=== PATIENT | female | born 1955 | race Two or more races ===

== ENCOUNTER 2018-01-10 16:00 | Outpatient (AMBR) | payer OTHER, SELFPAY ==
--- NOTE | 2017-12-25 16:09 | PT.ODAYNRPT ---
PT Outpatient Daily Note Date of Service: December 25, 2017 OP Daily Note Visit Reasons: low back Outpatient Physical Therapy Treatment Date: 12/25/17 Subjective: Pt mention that her neck feels the same. Pt still has good and bad day. Pt continues to notice tension on the left side of her neck. Objective: Please see flow chart for list of ther ex performed Assessment: tight levator scapulae bilaterally; decrease tightness after stretching Plan: Continue with PT Length of Time (minutes) of Treatment: 30 Minutes Office Procedures PT Procedures PT Date of Service: 12/25/17 Therapeutic Exercise 15 minutes: Yes Manual Laborer Brush Clearing 15 minutes: Yes
--- NOTE | 2018-01-01 17:02 | PTNOTE_ITS ---
PT Outpatient Daily Note Date of Service: January 01, 2018 OP Daily Note Visit Reasons: low back Outpatient Physical Therapy Treatment Date: 01/01/18 Subjective: pt reports feeling better since last visit. Objective: see flow sheet. Assessment: noted pt was not able to keep both arms up against the wall during wall angels exercise even with TCs. performs exercises with no complaints nor muscle fatigue. no signs of SOB after ther ex. pt stays calm during PROM of the neck in supine position and no facial expressions noted. Plan: continue POC per PT. Length of Time (minutes) of Treatment: 30 Minutes Office Procedures PT Procedures PT Date of Service: 12/25/17 Therapeutic Exercise 15 minutes: Yes Manual Manufactured Buildings Supervisor 15 minutes: Yes PT Procedures PT Date of Service: 01/01/18 Therapeutic Exercise 15 minutes: Yes Manual Manufactured Buildings Supervisor 15 minutes: Yes
--- NOTE | 2018-01-03 16:27 | PTNOTE_ITS ---
PT Outpatient Daily Note Date of Service: January 03, 2018 OP Daily Note Visit Reasons: low back Outpatient Physical Therapy Treatment Date: 01/03/18 Subjective: Pt's mid back feels much better. Pt's neck is also more loose with less pain. Objective: Please see flow chart for list of ther ex performed Assessment: tolerate exercises with minimal pain; decrease neck tension Plan: Continue with PT Length of Time (minutes) of Treatment: 30 Minutes Office Procedures PT Procedures PT Date of Service: 12/25/17 Therapeutic Exercise 15 minutes: Yes Manual Bleach Range Operator 15 minutes: Yes PT Procedures PT Date of Service: 01/01/18 Therapeutic Exercise 15 minutes: Yes Manual Bleach Range Operator 15 minutes: Yes PT Procedures PT Date of Service: 01/03/18 Therapeutic Exercise 30 minutes: Yes
--- NOTE | 2018-01-08 17:21 | PTNOTE_ITS ---
PT Outpatient Daily Note Date of Service: January 08, 2018 OP Daily Note Visit Reasons: low back Outpatient Physical Therapy Treatment Date: 01/08/18 Subjective: pt doing well today as she had no complaints. Objective: see flow sheet. Assessment: hotpack in supine position while PROM of the neck to both sides. at times pt tenses up and needs to relax a bit. the R side seems more tight as noted during stretching. pt has no c/o pain or discomfort during PROM. pt then continued on with exercises. pt used the GTB today and had no difficulties with it. maintained good standing posture. Plan: continue POC per PT. Length of Time (minutes) of Treatment: 30 Minutes Office Procedures PT Procedures PT Date of Service: 12/25/17 Therapeutic Exercise 15 minutes: Yes Manual Business Machine Mechanic 15 minutes: Yes PT Procedures PT Date of Service: 01/01/18 Therapeutic Exercise 15 minutes: Yes Manual Business Machine Mechanic 15 minutes: Yes PT Procedures PT Date of Service: 01/03/18 Therapeutic Exercise 30 minutes: Yes PT Procedures PT Date of Service: 01/08/18 Therapeutic Exercise 15 minutes: Yes Manual Business Machine Mechanic 15 minutes: Yes
--- NOTE | 2018-01-10 16:27 | PTNOTE_ITS ---
PT Outpatient Daily Note Date of Service: January 10, 2018 OP Daily Note Visit Reasons: low back Outpatient Physical Therapy Treatment Date: 01/10/18 Subjective: Pt's neck and mid back feels much better. Pt notice that her pain is less. Objective: Please see flow chart for list of ther ex performed Assessment: improvement with t/s facet and mobility. less neck pain after therapy session Plan: Continue with PT Length of Time (minutes) of Treatment: 30 Minutes Office Procedures PT Procedures PT Date of Service: 12/25/17 Therapeutic Exercise 15 minutes: Yes Manual Coke Drawer Hand 15 minutes: Yes PT Procedures PT Date of Service: 01/01/18 Therapeutic Exercise 15 minutes: Yes Manual Coke Drawer Hand 15 minutes: Yes PT Procedures PT Date of Service: 01/10/18 Therapeutic Exercise 30 minutes: Yes PT Procedures PT Date of Service: 01/03/18 Therapeutic Exercise 30 minutes: Yes PT Procedures PT Date of Service: 01/08/18 Therapeutic Exercise 15 minutes: Yes Manual Coke Drawer Hand 15 minutes: Yes
== END 2018-01-13 23:59 ==
PROVIDERS: PCP Physician Assistant; Referring Provider Physician Assistant
DX: M54.5 Low back pain (principal); M54.2 Cervicalgia
CPT/HCPCS: 97110; 97140

== ENCOUNTER 2024-06-28 09:21 | Outpatient (AMB) | payer MEDICARE, SELFPAY ==
--- NOTE | 2024-06-28 09:30 | PD.ORTHCLVIS ---
Vital signs 06/28/24 09:33 Height 1.6 m Height Method Stated Weight 60.328 kg Weight Measurement Method Standing Scale BMI 23.6 BP 161/90 H Blood Pressure Source Automatic Cuff Blood Pressure Location Left Upper Arm Position Sitting Respiration 18 Pulse 73 Pulse Source Monitor Temp 98.0 F Temp Source Oral Pulse Oximetry (%) 96 Oxygen Delivery Method Room Air Med/Allergies Allergies & Medications Allergies No Known Drug Allergies Allergy (Verified 04/26/24 15:28) Subjective Visit Visit for: follow up visit and knee Immunization / Flu Flu Vaccine in the Last 12 Months: Yes Date of most recent flu vaccination: 04/16/24 Flu Vaccine Exclusion Criteria: No Exclusion Criteria History of Present Illness Chief complaint: PT HERE IN OFFICE FOR PREOP RIGHT TKA Date of injury / onset of symptoms: 02/12/24 Patient is a 68-year-old female status post left total knee replacement. She is doing well. She is 12 weeks postop. She is doing well with outpatient home therapy Personal History Red flag PMH: none Pain Pain level (0-10): 8 Pain duration: CONSTANT Pain location: inside (medial), outside (lateral), anterior and posterior Pain quality: sharp Pain timing: increases with activity Associated signs & symptoms: none Ambulatory data Ambulatory device: none Treatments Improvement with previous injections: No Improvement with PT: No Improvement with NSAIDS: no Review of Systems Review of Systems: All systems negative unless otherwise noted in HPI. Exam Exam Patient is in no acute distress and is cooperative with the examination today. Patient has a normal mood and affect. Breathing is nonlabored. In no respiratory distress. Bilateral extremities were evaluated and demonstrates sensation intact to light touch. Palpable pedal pulses are present. No significant edema is present. Left knee incision is clean dry intact. Range of motion 0-100 degrees Right knee demonstrates romn from 0-100. knee is ttp medially. There is significant varus deformity Xrays demonstrate a cemented total knee replacement in good alignment and position. For the right knee, there is significant varus deformity and complete obliteration of the medial joint space. Assessment and Plan Problem List (1) Degenerative arthritis of knee, bilateral: Status: Acute Plan: Patient is a 68-year-old female status post left total knee replacement. She is doing well. She has minimal pain. She is working with outpatient physical therapy. The left knee pain is affecting her quality life and happiness. She has tried multiple injections, and anti-inflammatories. The nature and purpose of the total knee replacement, alternative method(s) of treatment, the material risks involved, and the possibility of complications were fully explained to the patient. The patient does NOT have any of the following contraindications to TKA: - Active infection of the knee joint, OR - Active systemic bacteremia, OR - Active skin infection or open wound at surgical site, OR - Neuropathic arthritis, OR - Severe, rapidly progressive neurological disease, OR - Severe medical condition that makes risks of surgery outweigh the potential benefit The patient was told the most common risks and complications associated with a total knee replacement include, but are not limited to: blood clots in the leg, fatal pulmonary embolism, dislocation of the prosthesis, intraoperative and postoperative fractures of the femur or tibia, infection, failure of the prosthesis or grafting materials, complications from anesthesia, reactions to blood transfusions, postoperative leg length inequality, instability of the knee replacement, nerve damage or injury, vascular injury, delayed wound healing, infection, other injury or even . In addition, there are risks associated with anesthesia given during this operation. Also, the patient was told that after undergoing a total knee replacement there may still be persistent pain or disability. The patient was informed that the success of this operation in part depends upon the mechanical devices which are going to be implanted and that these devices can fail or malfunction, and may need to be repaired or replaced and there are no guarantees as to the longevity of this device or its parts and that it or its parts could fail prematurely. The patient was also notified that during the course of surgery, there may be a need to use bone graft from donors, and that any bone graft used will be carefully screened for communicable diseases, including AIDS, hepatitis, Albin-Creutzfeldt, or other diseases, but despite the screening procedures, there is a small chance that they could contract one of these diseases. Finally, the patient was asked to follow completely and fully with all advice and recommended treatments, and that recovery and ultimate outcome are affected by their compliance with recommended treatment. We discussed the risks, benefits and treatment alternatives, and the patient is interested in proceeding with surgery. We will try to set this up as expeditiously as possible. (2) Status post total left knee replacement: Status: Acute Advanced Care Planning Discussion Advance care planning discussed with:: patient Office Procedures GNS Level of Care Nursing/Assessment Patient Status: Established Patient Nursing Assessment/Reassesment: BP Monitoring, Medication Reconciliation, Update PMH in EMR and Vital Signs Coordination of Care: Complex Care and Chronic Disease 1-5, Consent,records obtained, informed consent, 2-3 Insurance Autorizations needed, Lab and Imaging orders and Results/Orders obtained Special Needs: Language special needs Established Patient Charge Established Patient Point Assignment: 115 Established Patient Point Charge: Level 3 (80-115) Past Medical History Past Medical History Have you ever been diagnosed with any of the following: Neurological Problems Seizures: No Cardiology Problems Congestive Heart Failure: No Respiratory Problems Chronic Obstructive Pulmonary Disease (COPD): No Smoking: No Smoking Cessation Counseling: No Smoking Exposure: No Tobacco Use: No Clubbing: No Stomache/Intestinal Problems Hepatitis: No Genital/Urinary Problems Renal Disease: No Reproductive Problems Previous Pregnancies: Yes Musculoskeletal Problems Arthritis: Yes Endocrine Problems Diabetes Mellitus Type 1: No Diabetes Mellitus Type 2: No Other Problems Hospitalization: No Shingles: No Blood Transfusions: No Anesthesia Reactions: No Chicken Pox: Yes Measles: Yes Cancer: No Surgical History Total Knee Replacement: Yes Hysterectomy: Yes
[2024-06-28 09:33] VITALS: BP 161/90; PULSE 73; RESP 18; TEMP 36.7; O2SAT 96; BMI 23.6
== END 2024-06-28 09:52 | disposition home or self-care (01) ==
LOC: HODSRG 09:21
PROVIDERS: PCP Family Medicine; Referring Provider Family Medicine; Supervising Provider Orthopaedic Surgery Adult Reconstructive Orthopaedic Surgery; Visit Provider Orthopaedic Surgery Adult Reconstructive Orthopaedic Surgery
DX: M17.0 Bilateral primary osteoarthritis of knee (principal); Z96.652 Presence of left artificial knee joint
CPT/HCPCS: 99213; G0463

== ENCOUNTER → 2024-07-11 | Outpatient (CLI) | payer MEDICARE, MEDICAID, SELFPAY ==
--- NOTE | 2024-07-11 15:30 | XR_ITS ---
Examination: CT right lower extremity, without contrast. 2-D sagittal reconstructions. 2-D coronal reconstructions. 3-D reconstructions. Date and time of exam:July 11, 2024 1537 hours INDICATIONS: Right knee pain osteoarthritis 4 years CTDI: vol (mGy):9.81 DLP: (mGycm):751 Technique: Multiple 1.25 mm axial sections of the right lower extremity without intravenous contrast have been obtained. 2-D sagittal and coronal reconstructions have been obtained. 3-D reconstructions have been obtained. Low dose protocols were performed. One or more of the following dose reduction techniques were used; automated exposure control, adjustment of the mA and/or KV according to patient size, use of iterative reconstruction technique. Findings: Significant osteopenia Moderate narrowing right hip joint Greater trochanteric bursitis right hip No right hip fracture Significant narrowing medial joint space right knee Moderate to advanced osteoarthritis lateral joint space right knee No fracture IMPRESSION: Advanced osteoarthritis medial joint space right knee Moderate to advanced osteoarthritis lateral joint space right knee
== END | disposition home or self-care (01) ==
PROVIDERS: PCP Family Medicine; Referring Provider Orthopaedic Surgery Adult Reconstructive Orthopaedic Surgery; Visit Provider Orthopaedic Surgery Adult Reconstructive Orthopaedic Surgery
DX: M17.11 Unilateral primary osteoarthritis, right knee (principal)
CPT/HCPCS: 73700

== ENCOUNTER 2024-07-31 07:20 | Day surgery (SDC) | payer MEDICARE, MEDICAID, SELFPAY ==
--- NOTE | 2024-07-26 11:02 | EKG_ITS ---
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
[2024-07-26 11:21] VITALS: BMI 26.2
[2024-07-26 13:19] LABS: Basophils % (Auto) 1 % (0-2.5); Eosinophils # (Auto) 0.1 Thou/mm3 (0.0-0.5); Eosinophils % (Auto) 2 % (0-10); Immature Granulocytes % (Auto) 0 % (0-0); Immature Granulocytes Auto 0.01 Thou/mm3 (0.00-0.00); Lymphocytes # (Auto) 1.5 Thou/mm3 (1.0-4.8); Lymphocytes % (Auto) 25 % (10-50); Mean Corpuscular HGB Conc 34.2 g/dl (31.0-37.0); Mean Corpuscular Hemoglobin 30.5 pg (25.0-35.0); Mean Corpuscular Volume 89 fL (80-100); Monocytes # (Auto) 0.4 Thou/mm3 (0.0-0.8); Monocytes % (Auto) 7 % (0-12); Neutrophils % (Auto) 66 % (37-80); Nucleated Red Blood Cell % 0 /100 WBC (0); Platelet Count 216 Thou/mm3 (140-440); RDW Standard Deviation 42.3 fL (36.4-46.3); Red Blood Count 4.26 Miln/mm3 (4.00-5.20)
[2024-07-26 13:33] LABS: Alanine Aminotransferase 23 U/L (10-49); Albumin, Serum 4.5 gm/dL (3.4-4.8); Albumin/Globulin Ratio 2.3 (1.2-2.2); Alkaline Phosphatase 65 U/L (46-116); Anion Gap 6 (7-16); Aspartate Amino Transferase < 10 U/L (0-34); BUN/Creatinine Ratio 27 Ratio (12-20); Bilirubin,Total 0.4 mg/dL (0.3-1.2); Blood Urea Nitrogen 19 mg/dL (9-23); Calcium 9.8 mg/dL (8.3-10.6); Calcium (Corrected) 9.8 mg/dL (8.5-10.1); Carbon Dioxide 29.6 mMol/L (20.0-31.0); Chloride 106 mMol/L (98-107); Creatinine (Component) 0.7 mg/dL (0.6-1.3); Estimated Creatinine Clearance 62.7 mL/min (>60); Glucose 138 mg/dL (74-106); Osmolality,Calculated 287 (275-295); Sodium 142 mMol/L (136-145); Total Protein 6.5 gm/dL (5.7-8.2); eGFR > 60 See Note
[2024-07-26 14:09] LABS: INR 0.9 (0.9-1.3); Partial Thromboplastin Time 24.8 Seconds (22.0-36.0); Prothrombin Time 10.4 Seconds (9.0-12.2)
--- NOTE | 2024-07-30 14:51 | SUR.PREOP ---
Pt notified to come in at 0730 tomorrow for surgery.
[2024-07-31] VITALS (11 sets, daily range): BP systolic 116–162; BP diastolic 74–84; PULSE 63–83; RESP 12–21; TEMP 36.3–36.8; O2SAT 95–98; BMI 25.1
[2024-07-31] MEDS: ACETAMINOPHEN 325 MG TABLET 650 MG PO (08:50)
[2024-07-31] MEDS: MELOXICAM 7.5 MG TABLET PO ×2 (08:50→20:11)
[2024-07-31] MEDS: PREGABALIN 75 MG CAPSULE PO (08:50)
[2024-07-31] MEDS: RINGERS LACTATED 1000 ML 1,000 ML 20 ML IV (08:50)
--- NOTE | 2024-07-31 11:45 | ESOP_ITS ---
Date of Procedure 07/31/24 Pre Op Diagnosis right knee osteoarthritis Post Op Diagnosis right knee osteoarthritis Procedure right total knee replacement Findings full thickness cartilage loss and osteophytes Procedure Description Indication: The patient is a 69 year old who has a long history of right knee pain. X-rays show degenerative arthritis involving the knee. Over the past several years the patient has had increasing pain, progressive limitation in function. He has failed conservative measures including activity modification, physical therapy, injections, anti-inflammatories, and assistive devices. After a lengthy discussion of the risks and benefits, the patient presents now for total knee replacement. The nature and purpose of the total knee replacement, alternative method(s) of treatment, the material risks involved, and the possibility of complications were fully explained to the patient. The patient was told the most common risks and complications associated with a total knee replacement include, but are not limited to blood clots in the leg, fatal pulmonary embolism, dislocation of the prosthesis, intraoperative and postoperative fractures of the femur or tibia, infection, failure of the prosthesis or grafting materials, complications from anesthesia, reactions to blood transfusions, postoperative leg length inequality, instability of the knee replacement, nerve damage or injury, vascular injury, delayed wound healing, infections, other injury or even . In addition, there are risks associated with anesthesia given during this operation, temporary or permanent numbness on the skin lateral to the incision can be a complication unique to total knee surgery, and kneeling can be painful after knee replacement surgery. Also, the patient was told that after undergoing a total knee replacement there may still be pain or disability. We discussed with the patient that we will be using a robot-assisted technology. We discussed that there is a possibility of converting to manual instrumentation. The patient was informed that the success of this operation in part depends upon the mechanical devices which are going to be implanted and that these devices can fail or malfunction, and may need to be repaired or replaced and there are no guarantees as to the longevity of this device or its part and that it or its parts could fail prematurely. Finally, the patient was asked to follow completely and fully with all advice and recommended treatments, and that recovery and ultimate outcome are affected by their compliance with recommended treatment. Surgical technique: Patient was marked and consented in the pre-operative area. The patient was brought to the operating room and placed on the operating table in a supine position. Prior to positioning, a timeout procedure was performed between the surgeon, the anesthesiologist, and the nursing staff where the patient and the operative side were identified and confirmed. After adequate general anesthetic was obtained, the right lower extremity was prepped and draped in the usual sterile fashion. A weight based dose of Cefazolin were administered within 1 hour prior to incision. The robot was preregistered and calirated before the incision. The extremity was exsanguinated with an esmarch badge and tourniquet inflated to 250mmHg. A midline incision was made. A median parapatellar arthrotomy was made. The patella was subluxed laterally. A medial release was performed to expose the medial tibia. His femoral and tibial pins were placed through an intra incisional manner for both cases. Every effort was made to ensure that the distalmost aspect of the pin was hung in the second cortex. The arrays were then tightened several times to ensure that it was fixed for the remainder of the case. Both femoral and tibial checkpoints were then placed. We then went through the registration process of the bone. We then assessed the knee deformity and attempted to correct it. We also used the robot to aid in judging laxity in both extension and flexion. Final based on laxity and alignment we changed the preoperative assessment to obtain proper proper implant positioning and to correct deformity. Attention was then placed to the tibia. We made a tibial cut using the robot ensuring that both the MCL and the patella tendon were protected with retractors. We then went to the femur and made the posterior cut followed by the anterior cut and the anterior chamfer. The bone was then removed and we made a distal femur cut and a posterior chamfer cut. We verified all cuts. A trial reduction was performed with a size 2 femoral component and a size 2 keeled tibial component. The patella tracked centrally, and no lateral retinacular release was necessary. The trial implants were removed. The arrays, pins, and checkpoints were all removed. We performed a verification that all pins were removed. The cut bone surfaces were lavaged. A size 2 right femoral component, a size 2 keeled tibial component were impacted into position. The knee was felt to be well balanced in the sagittal and coronal plane. The final 2x10 mm cruciate- substituting articular insert was impacted into the tibial tray. The knee was brought out to full extension, flexed up to 120 degrees. It was stable to varus and valgus stress and appropriately balanced in flexion and extension. The wounds were copiously irrigated following deflation of tourniquet. The medial retinaculum was reapproximated with #1 vicryl and quill. The subcutaneous tissues were closed with 0 and 2-0 interrupted Vicryl. The skin was closed with 3-0 Monofilament V loc suture. A sterile dressing was applied. The patient was transferred to a bed and brought to recovery in stable condition. The patient tolerated the procedure well. There were no intraoperative complications. Sponge and needle counts were correct times 2. As the attending surgeon, I attest I was present and performed the entire operation. Grafts/Implants Size 2 CR Femur Size 2 Tibia 10mm poly CS Anesthesia GETA Implants laly Pathology / specimen None Pathology comment: none Estimated Blood Loss 150 Condition Stable Disposition observation Surgeon Charanjit Hardy MD Surgical Staff Operation Date: 07/31/24 10:30 Case Staff IUSS MASTER ANALYST: Martín Ware RNcontinuous improvement coordinator: Inna Romo
--- NOTE | 2024-07-31 11:45 | XR_ITS ---
Examination: Right knee 2 views Technique one AP lateral right knee 2 views Exam date and time: July 31, 2024 1309 hours INDICATIONS: Postop knee replacement FINDINGS: Total right knee arthroplasty. Satisfactory alignment Severe osteopenia No fracture IMPRESSION: Total right knee arthroplasty with satisfactory alignment
--- NOTE | 2024-07-31 12:29 | SUR.PHASEI ---
pt received from OR in recovery bay 7. pt asleep but responds to voice, breathing unlabored on 4l nc. v/s stable. pt dressing to right lower extremity cdi. report received from Michael CRUM and Raysa RAUSCH.
[2024-07-31] MEDS: fentaNYL CIT INJ 50 mCg/ML AMP 2ML IVP (13:11)
--- NOTE | 2024-07-31 13:55 | SUR.PHASEI ---
pt asleep but responds to voice, breathing unlabored on 2l nc. v/s stable. pt dressing to right lower extremity cdi. report called to Samantha RAUSCH. pt will be transferred to room at this time.
[2024-07-31] MEDS: oxyCODONE HCL 5 MG IR TAB 10 MG PO (19:19)
[2024-07-31] MEDS: ASPIRIN EC 81 MG TABEC PO (20:11)
[2024-07-31] MEDS: ACETAMINOPHEN 500 MG TABLET 1000 MG PO (23:43)
[2024-08-01] VITALS: BP 119/73; PULSE 77; RESP 18; TEMP 36.4; O2SAT 97
[2024-08-01 04:00] VITALS: BP 97/55; PULSE 67; RESP 18; TEMP 36.6; O2SAT 97
[2024-08-01] MEDS: oxyCODONE HCL 5 MG IR TAB 10 MG PO ×2 (04:41→11:07)
[2024-08-01 08:00] VITALS: BP 89/51; PULSE 64; RESP 18; TEMP 36.6; O2SAT 95
[2024-08-01] MEDS: ACETAMINOPHEN 500 MG TABLET 1000 MG PO (08:03)
[2024-08-01] MEDS: PANTOPRAZOLE INJ 40 MG VIAL IV (08:03)
[2024-08-01] MEDS: ASPIRIN EC 81 MG TABEC PO (08:04)
--- NOTE | 2024-08-01 10:03 | PC.SS ---
Rosa Pedro is a 69-year-old female admitted to Med-Surg for RT Knee [id number]. SS conducted bedside contact with the patient to complete initial assessment and to discuss discharge planning. Patient confirmed demographic information. Patient identifies her Damon Pedro [phone] as her surrogate decision maker. Patient resides at home with her . Pt states she is able to complete all ADL?s independently possesses a FWW. Pts PCP is Dr. Stanley Peters and her pharmacy of choice is [facility]. The pt?s plan is to DC with Home Health as stated by Dr. Hardy, Ortho [facility]. Pts will provide transportation upon DC. No further intervention required at this time, social media campaign manager would be available to address any further concerns. DC Plan: Home w/ HH Contact: Damon Pedro [phone] PCP: Gil Peters
[2024-08-01 11:43] VITALS: BP 92/50; PULSE 64; RESP 18; TEMP 36.6; O2SAT 95
== END 2024-08-01 12:35 | disposition home or self-care (01) ==
LOC: S2EX 11:45 → S3NX 13:59
PROVIDERS: Anesthesiology; PCP Family Medicine; Referring Provider Orthopaedic Surgery Adult Reconstructive Orthopaedic Surgery; Visit Provider Orthopaedic Surgery Adult Reconstructive Orthopaedic Surgery
PROC: (CPT 27447; principal; 2024-07-31 10:30)
DX: M17.11 Unilateral primary osteoarthritis, right knee (principal); Z01.810 Encounter for preprocedural cardiovascular examination
CPT/HCPCS: 27447; 20985; 36415; 73560; 80053; 85025; 85610; 85730; 87081; 93005; 97162; A4217; C1713; C1776; J0690; J1100; J1885; J2250; J2371; J2405; J2470; J2704; J2795; J3010; J3490; J7030; J7120; J7999; A4648; A4649; A9270

== ENCOUNTER 2024-08-13 10:47 | Outpatient (AMB) | payer MEDICARE, MEDICAID, SELFPAY ==
--- NOTE | 2024-08-13 11:14 | ORTHONT_ITS ---
Vital signs 08/13/24 11:15 Height 1.55 m Height Method Stated Weight 61.774 kg Weight Measurement Method Standing Scale BMI 25.7 BP 145/89 H Blood Pressure Source Automatic Cuff Blood Pressure Location Left Upper Arm Position Sitting Respiration 19 Pulse 74 Pulse Source Monitor Temp 97.4 F Temp Source Temporal Artery Scan Pulse Oximetry (%) 94 L Oxygen Delivery Method Room Air Med/Allergies Allergies & Medications Allergies No Known Drug Allergies Allergy (Verified 08/13/24 11:16) Medication Reconciliation acetaminophen 500 mg tablet (Acetaminophen Extra Strength) 1,000 mg (2 x 500 mg) PO Q6H PRN pain #90 tabs 07/30/24 [Rx Confirmed 08/13/24] aspirin 81 mg tablet,delayed release 81 mg PO BID #60 tabs 07/30/24 [Rx Confirmed 08/13/24] doxycycline hyclate 100 mg tablet 100 mg PO BID #14 tabs 07/30/24 [Rx Confirmed 08/13/24] oxycodone 5 mg tablet 5 mg PO Q6H PRN pain #28 tabs 07/30/24 [Rx Confirmed 08/13/24] sennosides 8.6 mg-docusate sodium 50 mg tablet (Senna-S) 1 tab-cap PO QDAY #30 tabs 07/30/24 [Rx Confirmed 08/13/24] pantoprazole 40 mg tablet,delayed release 40 mg PO QDAY #30 tabs 08/01/24 [Rx Confirmed 08/13/24] pregabalin 75 mg capsule 75 mg PO BID #45 caps 08/01/24 [Rx Confirmed 08/13/24] Exam Exam Patient is in no acute distress and is cooperative with the examination today. Patient has a normal mood and affect. Breathing is nonlabored. In no respiratory distress. Bilateral extremities were evaluated and demonstrates sensation intact to light touch. Palpable pedal pulses are present. No significant edema is present. Left knee incision is clean dry intact. Range of motion 0-100 degrees Right knee demonstrates romn from 0-100. Incision is clean dry and intact Xrays demonstrate a cemented total knee replacement in good alignment and position. For the right knee, there is significant varus deformity and complete obliteration of the medial joint space. Assessment and Plan Problem List (1) Degenerative arthritis of knee, bilateral: Status: Acute Plan: Patient is a 68-year-old female status post Right total knee replacement. She is doing well. She has minimal pain. We Will refill her Tylenol (2) Status post total left knee replacement: Status: Acute Advanced Care Planning Discussion Advance care planning discussed with:: patient Office Procedures GNS Level of Care Nursing/Assessment Patient Status: Established Patient Nursing Assessment/Reassesment: Medication Reconciliation, Update PMH in EMR and Vital Signs Coordination of Care: Complex Care and Chronic Disease 1-5, Education Complex Pt/Fam, Consent,records obtained, informed consent, Results/Orders obtained and Staff clarify orders Special Needs: Language special needs Established Patient Charge Established Patient Point Assignment: 95 Established Patient Point Charge: EP Level 3 (80-115) MA Intake Visit Data Collection New Patient or Established: Established Patient (seen at [facility] within 3 years) Reason for Visit:: 2 week right tka f/u Seen by Clinical Staff ONLY (RN/MA): No Machine Brusher Required: Yes PCP or OBGYN visit in last 3 months: Yes Hx Now: No Do You Feel Safe at Home: Yes Authorities Contacted: N/A Questionairres Past Medical History Past Medical History Have you ever been diagnosed with any of the following: Neurological Problems Seizures: No Cardiology Problems Congestive Heart Failure: No Respiratory Problems Chronic Obstructive Pulmonary Disease (COPD): No Smoking: No Smoking Cessation Counseling: No Smoking Exposure: No Tobacco Use: No Clubbing: No Stomache/Intestinal Problems Hepatitis: No Genital/Urinary Problems Renal Disease: No Reproductive Problems Previous Pregnancies: Yes Musculoskeletal Problems Arthritis: Yes Endocrine Problems Diabetes Mellitus Type 1: No Diabetes Mellitus Type 2: No Other Problems Hospitalization: No Shingles: No Blood Transfusions: No Blood Transfusion Reaction: No Anesthesia Reactions: No Chicken Pox: Yes Measles: Yes Cancer: No Surgical History Total Knee Replacement: Yes Hysterectomy: Yes Subjective Visit Visit for: follow up visit and knee Immunization / Flu Flu Vaccine in the Last 12 Months: No Flu Vaccine Exclusion Criteria: No Exclusion Criteria History of Present Illness Chief complaint: right tka Patient is doing well status post right total knee replacement. Patient has minimal pain. Pain Pain level (0-10): 0 Ambulatory data Ambulatory device: walker Treatments Improvement with previous injections: No Improvement with PT: No Improvement with NSAIDS: no Review of Systems Review of Systems: All systems negative unless otherwise noted in HPI.
[2024-08-13 11:15] VITALS: BP 145/89; PULSE 74; RESP 19; TEMP 36.3; O2SAT 94; BMI 25.7
== END 2024-08-13 11:20 | disposition home or self-care (01) ==
LOC: HODSRG 10:47
PROVIDERS: PCP Family Medicine; Referring Provider Family Medicine; Supervising Provider Orthopaedic Surgery Adult Reconstructive Orthopaedic Surgery; Visit Provider Orthopaedic Surgery Adult Reconstructive Orthopaedic Surgery
DX: M17.0 Bilateral primary osteoarthritis of knee (principal); Z96.651 Presence of right artificial knee joint
CPT/HCPCS: 99213; G0463

== ENCOUNTER → 2024-09-05 | Outpatient (CLI) | payer MEDICARE, MEDICAID, SELFPAY ==
--- NOTE | 2024-09-05 08:32 | XR_ITS ---
Examination: Bilateral knees 2 views Right lateral knee left lateral knee 2 views Bilateral axial knees single view TECHNIQUE: Bilateral AP knees standing single view, bilateral PA knees standing single view 30 degrees flexion Right lateral knee left lateral knee 2 views Bilateral axial knees single view total 5 views Exam date and time: September 05, 2024 0842 hours INDICATIONS: Bilateral total knee arthroplasties, right knee July 31, 2024 left knee February 12, 2024 FINDINGS: Moderate osteopenia Bilateral total knee arthroplasties. Satisfactory alignment. No loosening of the prosthetic components. No fractures. No patellar dislocations IMPRESSION: Bilateral total knee arthroplasties with satisfactory alignment
== END | disposition home or self-care (01) ==
LOC: CDIM 08:22
PROVIDERS: PCP Family Medicine; Referring Provider Orthopaedic Surgery Adult Reconstructive Orthopaedic Surgery; Visit Provider Orthopaedic Surgery Adult Reconstructive Orthopaedic Surgery
DX: M17.11 Unilateral primary osteoarthritis, right knee (principal); Z96.653 Presence of artificial knee joint, bilateral
CPT/HCPCS: 73564

== ENCOUNTER 2024-09-10 13:43 | Outpatient (AMB) | payer MEDICARE, MEDICAID, SELFPAY ==
[2024-09-10 14:03] VITALS: BP 146/98; PULSE 67; RESP 18; TEMP 36.5; O2SAT 95; BMI 25.3
--- NOTE | 2024-09-10 14:03 | PD.ORTHCLVIS ---
Vital signs 09/10/24 14:03 Height 1.55 m Height Method Stated Weight 60.923 kg Weight Measurement Method Standing Scale BMI 25.3 BP 146/98 H Blood Pressure Source Automatic Cuff Blood Pressure Location Right Upper Arm Position Sitting Respiration 18 Pulse 67 Pulse Source Monitor Temp 97.7 F Temp Source Temporal Artery Scan Pulse Oximetry (%) 95 Oxygen Delivery Method Room Air Med/Allergies Allergies & Medications Allergies No Known Drug Allergies Allergy (Verified 09/10/24 14:10) Medication Reconciliation aspirin 81 mg tablet,delayed release 81 mg PO BID #60 tabs 07/30/24 [Rx Confirmed 09/10/24] doxycycline hyclate 100 mg tablet 100 mg PO BID #14 tabs 07/30/24 [Rx Confirmed 09/10/24] sennosides 8.6 mg-docusate sodium 50 mg tablet (Senna-S) 1 tab-cap PO QDAY #30 tabs 07/30/24 [Rx Confirmed 09/10/24] pantoprazole 40 mg tablet,delayed release 40 mg PO QDAY #30 tabs 08/01/24 [Rx Confirmed 09/10/24] pregabalin 75 mg capsule 75 mg PO BID #45 caps 08/01/24 [Rx Confirmed 09/10/24] pregabalin 75 mg capsule 75 mg PO BID #60 caps 08/27/24 [Rx Confirmed 09/10/24] acetaminophen 500 mg tablet (Acetaminophen Extra Strength) 1,000 mg (2 x 500 mg) PO Q8HR PRN pain #90 tabs 09/10/24 [Rx] oxycodone 5 mg tablet 5 mg PO Q6H PRN pain #28 tabs 09/10/24 [Rx] Exam Exam Patient is in no acute distress and is cooperative with the examination today. Patient has a normal mood and affect. Breathing is nonlabored. In no respiratory distress. Bilateral extremities were evaluated and demonstrates sensation intact to light touch. Palpable pedal pulses are present. No significant edema is present. Left knee incision is clean dry intact. Range of motion 0-100 degrees Right knee demonstrates romn from 0-100. Incision is clean dry and intact Xrays demonstrate a cemented total knee replacement in good alignment and position. Right knee also demonstrates a cementless total knee replacement good alignment position Assessment and Plan Problem List (1) Degenerative arthritis of knee, bilateral: Status: Acute Plan: Patient is doing well status post right total knee replacement. She is happy with her progress. Will see her in approximately 2 months for routine evaluation. Her motion is great and she should continue to work with physical therapy (2) Status post total left knee replacement: Status: Acute Advanced Care Planning Discussion Advance care planning discussed with:: patient Office Procedures GNS Level of Care Nursing/Assessment Patient Status: Established Patient Nursing Assessment/Reassesment: Medication Reconciliation, Update PMH in EMR and Vital Signs Coordination of Care: Complex Care and Chronic Disease 1-5, Education Complex Pt/Fam, Consent,records obtained, informed consent, Results/Orders obtained and Staff clarify orders Special Needs: Language special needs Established Patient Charge Established Patient Point Assignment: 95 Established Patient Point Charge: EP Level 3 (80-115) MA Intake Visit Data Collection New Patient or Established: Established Patient (seen at [facility] within 3 years) Reason for Visit:: F/U RT TKA Seen by Clinical Staff ONLY (RN/MA): No Verbal consent obtained for Telemed visit?: No Flower Arranger Required: Yes PCP or OBGYN visit in last 3 months: Yes Hx Now: No Do You Feel Safe at Home: Yes Authorities Contacted: N/A Questionairres Past Medical History Past Medical History Have you ever been diagnosed with any of the following: Neurological Problems Seizures: No Cardiology Problems Congestive Heart Failure: No Respiratory Problems Chronic Obstructive Pulmonary Disease (COPD): No Smoking: No Smoking Cessation Counseling: No Smoking Exposure: No Tobacco Use: No Clubbing: No Stomache/Intestinal Problems Hepatitis: No Genital/Urinary Problems Renal Disease: No Reproductive Problems Previous Pregnancies: Yes Musculoskeletal Problems Arthritis: Yes Endocrine Problems Diabetes Mellitus Type 1: No Diabetes Mellitus Type 2: No Other Problems Hospitalization: No Shingles: No Blood Transfusions: No Blood Transfusion Reaction: No Anesthesia Reactions: No Chicken Pox: Yes Measles: Yes Cancer: No Surgical History Total Knee Replacement: Yes Hysterectomy: Yes Subjective Visit Visit for: post op #2 and knee Immunization / Flu Flu Vaccine in the Last 12 Months: Yes Flu Vaccine Exclusion Criteria: No Exclusion Criteria History of Present Illness Chief complaint: POST OP RT TKA Patient is doing well status post right total knee replacement. She has minimal pain. Personal History Occupation: UNEMPLOYED Red flag PMH: none Pain Pain level (0-10): 5 Pain duration: COMES AND GOES Pain location: inside (medial), outside (lateral) and anterior Pain quality: dull and aching Ambulatory data Ambulatory device: none Treatments Improvement with previous injections: No Improvement with PT: No Improvement with NSAIDS: no Review of Systems Review of Systems: All systems negative unless otherwise noted in HPI.
== END 2024-09-10 14:17 | disposition home or self-care (01) ==
LOC: HODSRG 13:43
PROVIDERS: PCP Family Medicine; Referring Provider Family Medicine; Supervising Provider Orthopaedic Surgery Adult Reconstructive Orthopaedic Surgery; Visit Provider Orthopaedic Surgery Adult Reconstructive Orthopaedic Surgery
DX: M17.0 Bilateral primary osteoarthritis of knee (principal); Z96.653 Presence of artificial knee joint, bilateral
CPT/HCPCS: 99213; G0463

== ENCOUNTER 2024-09-13 14:00 | Outpatient (RCR) | payer MEDICARE, SELFPAY ==
--- NOTE | 2024-09-05 14:48 | PTNOTE_ITS ---
PT OP Initial Eval Patient Information Outpatient Physical Therapy Treatment Date: 09/05/24 Visit Reasons: RT Tka Medical Diagnosis: Right Knee OA Treatment Dx #1: Right Knee Mobility Deficits Treatment Dx #2: Right Knee Weakness Start of Care: 09/05/24 Date of Onset: 07/31/24 Smoking Status Smoking Status: Never smoker Initial Assessment Subjective: Pt is a 69 y/o female s/p right TKA 07/31/24 due to knee OA. Pt mentioned her left knee has been replaced too. Pt has limitation with walking, standing, chores, self care, balance, squatting, and performing recreational activities. Objective: Right Knee AROM: -8 deg to 106 deg Right Knee PROM: -6 deg to 120 deg Right Knee MMTs: grossly 3+/5 Right Hip MMTs: grossly 3+/5 Assessment: Pt demonstrate right knee mobility and strength deficits s/p knee replacement leading to difficulty with ADLs. Pt will benefit from physical therapy to increase ROM, strength, and work on mobility. Short Term and Skilled Nursing Goals 1) Increase right knee flexion AROM to 120 deg in 8 wks to be able to perform squatting activities 2) Decrease knee pain to 2/10 in 8 wks to be able to stand more than 30 mins 3) Increase right knee MMTs grossly to 4/5 in 8 wks to be able to perform chores 4) Increase right hip MMTs grossly to 4-/5 in 8 wks to be able to walk more than 30 mins 5) Indep with HEP Treatment Plan 1) Manual Therapy 2) Therapeutic Activities 3) Therapeutic Exercises 4) Modalities (ice, heat) 5) Balance Training 6) Gait Training Frequency and Duration: 2 x wk for 8 wks Certification Dates: 09/05/24 to 12/03/24 Procedure Charges OP PT Eval Mod Complex 30 minutes: Yes
--- NOTE | 2024-09-09 14:24 | PT.ODAYNRPT ---
PT Outpatient Daily Note OP Daily Note Outpatient Physical Therapy Treatment Date: 09/09/24 Visit Reasons: RT Tka Subjective: No new complaints or concerns. Objective: Please see flow sheet for ther ex list. Assessment: Pt tolerated intervention with no complaints. Plan: Assess response to treatment. Length of Time (minutes) of Treatment: 30 Minutes Procedure Charges Therapeutic Exercise 30 minutes: Yes
--- NOTE | 2024-09-13 14:55 | PT.ODAYNRPT ---
PT Outpatient Daily Note OP Daily Note Outpatient Physical Therapy Treatment Date: 09/13/24 Visit Reasons: RT Tka Subjective: Pt's knee is better. Pt notice some swelling around the knee after doing step up exercise at home. Pt mentioned her step is around 8-10 . Objective: Please see flow chart for list of ther ex performed Assessment: progressing with knee flexion AROM. Pt instructed to hold on step up exercises at home due to height and knee is not stable enough to perform the exercise at mentioned height (8-10 ). Pt gave verbal understanding Plan: Continue with PT Length of Time (minutes) of Treatment: 30 Minutes Procedure Charges Therapeutic Exercise 30 minutes: Yes
== END 2024-09-13 23:59 | disposition home or self-care (01) ==
LOC: CPTX 14:00
PROVIDERS: PCP Orthopaedic Surgery Adult Reconstructive Orthopaedic Surgery; Referring Provider Orthopaedic Surgery Adult Reconstructive Orthopaedic Surgery; Visit Provider Orthopaedic Surgery Adult Reconstructive Orthopaedic Surgery
DX: R53.1 Weakness (principal); Z96.651 Presence of right artificial knee joint; R26.2 Difficulty in walking, not elsewhere classified; R26.89 Other abnormalities of gait and mobility; M17.11 Unilateral primary osteoarthritis, right knee
CPT/HCPCS: 97110; 97162

== ENCOUNTER 2024-10-09 15:30 | Outpatient (RCR) | payer MEDICARE, MEDICAID, SELFPAY ==
--- NOTE | 2024-09-16 16:08 | PT.ODAYNRPT ---
PT Outpatient Daily Note OP Daily Note Outpatient Physical Therapy Treatment Date: 09/16/24 Visit Reasons: RT TKA Subjective: Pt's knee feels better. Pt has some pressure with squatting, however, knee is moving well Objective: Right knee flexion AROM: 115 deg Assessment: progressing with knee flexion AROM with minimal pain reported Plan: Continue with PT Length of Time (minutes) of Treatment: 30 Minutes Procedure Charges Therapeutic Exercise 30 minutes: Yes
--- NOTE | 2024-09-19 15:35 | PT.ODAYNRPT ---
PT Outpatient Daily Note OP Daily Note Outpatient Physical Therapy Treatment Date: 09/19/24 Visit Reasons: RT TKA Subjective: Pt's knee is better. Pt does not have any concerns. Objective: Please see flow chart for list of ther ex performed Assessment: added more hip exercises with good tolerance; cues to pace with exercises today to decrease fatigue Plan: Continue with PT Length of Time (minutes) of Treatment: 30 Minutes Procedure Charges Therapeutic Exercise 30 minutes: Yes
--- NOTE | 2024-09-25 15:10 | PTNOTE_ITS ---
PT Outpatient Daily Note OP Daily Note Outpatient Physical Therapy Treatment Date: 09/25/24 Visit Reasons: RT TKA Subjective: Pt reports R knee progressing continues to perform HEP. Objective: Please see flow sheet for ther ex list. Assessment: Pt ROM into flexion continues to improve. Plan: Continue with POC. Length of Time (minutes) of Treatment: 30 Minutes QUALITY CONTROL TESTER Service Modifier Method I: Divide the number of min of care provided by the QUALITY CONTROL TESTER/FLOWER POT PRESS OPERATOR by the total min of care provided then multiply by 100. If greater than 11 percent modifier is required. Method II: Divide the total time of care provided to patient by 10 (round to the nearest whole number) and add 1 min. to set the minimum time requirement. If treatment total was 60 min., then 10% of 6 min PT CQ modifier applied: CQ Modifier applied Procedure Charges Therapeutic Exercise 30 minutes: Yes
--- NOTE | 2024-09-27 16:07 | PTNOTE_ITS ---
PT Outpatient Daily Note OP Daily Note Outpatient Physical Therapy Treatment Date: 09/27/24 Visit Reasons: RT TKA Subjective: Pt reports R knee was really sore after last session. Objective: Please see flow sheet for ther ex list. Assessment: Regressed interventions to accommodate reported soreness, pt verbalized she would appy cold pack at home. Plan: Assess response to treatment. Length of Time (minutes) of Treatment: 30 Minutes TRUCK DRIVER SALESPERSON Service Modifier Method I: Divide the number of min of care provided by the TRUCK DRIVER SALESPERSON/LAILA by the total min of care provided then multiply by 100. If greater than 11 percent modifier is required. Method II: Divide the total time of care provided to patient by 10 (round to the nearest whole number) and add 1 min. to set the minimum time requirement. If treatment total was 60 min., then 10% of 6 min PT CQ modifier applied: CQ Modifier applied Procedure Charges Therapeutic Exercise 30 minutes: Yes
--- NOTE | 2024-10-01 16:12 | PTNOTE_ITS ---
PT Outpatient Daily Note OP Daily Note Outpatient Physical Therapy Treatment Date: 10/01/24 Visit Reasons: RT TKA Subjective: Pt reports knee is feeling better today. Pt shared that she walks about 30 minutes a day when the weather is nice out and continues to do HEP. Objective: Please see flow sheet for ther ex list. Assessment: Pt presents in clinic with decrease c/o pain and soreness allowing for intervention progression. Plan: Continue with poC. Length of Time (minutes) of Treatment: 30 Minutes ABRASIVE GRINDER Service Modifier Method I: Divide the number of min of care provided by the ABRASIVE GRINDER/LAILA by the total min of care provided then multiply by 100. If greater than 11 percent modifier is required. Method II: Divide the total time of care provided to patient by 10 (round to the nearest whole number) and add 1 min. to set the minimum time requirement. If treatment total was 60 min., then 10% of 6 min PT CQ modifier applied: CQ Modifier applied Procedure Charges Therapeutic Exercise 30 minutes: Yes
--- NOTE | 2024-10-04 15:53 | PT.ODAYNRPT ---
PT Outpatient Daily Note OP Daily Note Outpatient Physical Therapy Treatment Date: 10/04/24 Visit Reasons: RT TKA Subjective: Pt's knee is better. Pt notice less pain and able to bend her knee more lately. Objective: Right Knee Flexion AROM: 120 deg Assessment: Pt demonstrate functional knee flexion AROM and able to achieve 120 deg without stretching Plan: Continue with PT Length of Time (minutes) of Treatment: 30 Minutes Procedure Charges Therapeutic Exercise 30 minutes: Yes
--- NOTE | 2024-10-07 16:27 | PT.ODAYNRPT ---
PT Outpatient Daily Note OP Daily Note Outpatient Physical Therapy Treatment Date: 10/07/24 Visit Reasons: RT TKA Subjective: Pt reports knee is doing well, content she was able to reach her goal for knee flexion 120 deg. last PT session. Objective: Please see flow sheet for ther ex list. Assessment: Pt ROM continues to improve, pt has 3 visits left. Plan: Continue with POC. Length of Time (minutes) of Treatment: 30 Minutes Procedure Charges Therapeutic Exercise 30 minutes: Yes
--- NOTE | 2024-10-09 16:14 | PT.ODAYNRPT ---
PT Outpatient Daily Note OP Daily Note Outpatient Physical Therapy Treatment Date: 10/09/24 Visit Reasons: RT TKA Subjective: Pt reports R knee is doing better, has been more active. Objective: Please see flow sheet for ther ex list. Assessment: Pt instructed on lunges and pt demonstrates good technique. Plan: Continue with POC. Length of Time (minutes) of Treatment: 30 Minutes Procedure Charges Therapeutic Exercise 30 minutes: Yes
== END 2024-10-14 23:59 | disposition home or self-care (01) ==
LOC: CPTX 15:30
PROVIDERS: PCP Orthopaedic Surgery Adult Reconstructive Orthopaedic Surgery; Referring Provider Orthopaedic Surgery Adult Reconstructive Orthopaedic Surgery; Visit Provider Orthopaedic Surgery Adult Reconstructive Orthopaedic Surgery
DX: R53.1 Weakness (principal); R26.2 Difficulty in walking, not elsewhere classified; R26.89 Other abnormalities of gait and mobility; Z96.651 Presence of right artificial knee joint; M17.11 Unilateral primary osteoarthritis, right knee
CPT/HCPCS: 97110

== ENCOUNTER 2024-10-17 15:00 | Outpatient (RCR) | payer MEDICARE, MEDICAID, SELFPAY ==
--- NOTE | 2024-10-15 15:45 | PTNOTE_ITS ---
PT Outpatient Daily Note OP Daily Note Outpatient Physical Therapy Treatment Date: 10/15/24 Visit Reasons: Right TKA Subjective: Pt reports R knee is doing better, is performing her HEP. Objective: Please see flow sheet for ther ex list. Assessment: pt able to replicate HEP with good technique, pt ready to d/c next session. Plan: Assess for note. Length of Time (minutes) of Treatment: 30 Minutes SAP BASIS ARCHITECT Service Modifier Method I: Divide the number of min of care provided by the SAP BASIS ARCHITECT/LAILA by the total min of care provided then multiply by 100. If greater than 11 percent modifier is required. Method II: Divide the total time of care provided to patient by 10 (round to the nearest whole number) and add 1 min. to set the minimum time requirement. If treatment total was 60 min., then 10% of 6 min PT CQ modifier applied: CQ Modifier applied Procedure Charges Therapeutic Exercise 30 minutes: Yes
--- NOTE | 2024-10-17 15:47 | PT.ODS1RPT ---
PT OP Progress/Discharge Note Date of Service: 10/17/24 Progress Note/DC Note Progress Note/Discharge Note: DC Note Patient Information Visit Reasons: Right TKA Medical Diagnosis: Right Knee OA Treatment Dx #1: Right Knee Mobility Deficits Treatment Dx #2: Right Knee Weakness Service Continue Service or Discharge: Discharge Discharge Date: 10/17/24 Status Subjective: Pt's knee is much better. Pt has been able to stand, walk, perform chores, self care, and recreational activities. Pt feels comfortable being release from care with exercises to continue at home. Objective: Right Knee AROM: -8 deg to 120 deg Right Knee MMTs: grossly 4/5 Right Hip MMTs: grossly 4-/5 Assessment: Pt demonstrate functional right knee mobility and strength. Pt has been able to resume all ADLs. Pt has met set goals in therapy and will no longer benefit from physical therapy. Pt was instructed on HEP last session and educated to continue exercises to maintain overall mobility. Pt performed all exercises safely, thank you for your referrals. Plan: D/C home with HEP and follow up with MD SNYDER Procedure Charges Therapeutic Exercise 30 minutes: Yes
== END 2024-11-13 23:59 | disposition home or self-care (01) ==
LOC: CPTX 15:00
PROVIDERS: PCP Orthopaedic Surgery Adult Reconstructive Orthopaedic Surgery; Referring Provider Orthopaedic Surgery Adult Reconstructive Orthopaedic Surgery; Visit Provider Orthopaedic Surgery Adult Reconstructive Orthopaedic Surgery
DX: R53.1 Weakness (principal); R26.2 Difficulty in walking, not elsewhere classified; R26.89 Other abnormalities of gait and mobility; Z96.651 Presence of right artificial knee joint; M17.11 Unilateral primary osteoarthritis, right knee
CPT/HCPCS: 97110

== ENCOUNTER 2024-11-05 13:42 | Outpatient (AMB) | payer MEDICARE, MEDICAID, SELFPAY ==
--- NOTE | 2024-11-05 13:59 | PD.ORTHCLVIS ---
Vital signs 11/05/24 14:00 Height 1.55 m Height Method Stated Weight 61.915 kg Weight Measurement Method Standing Scale BMI 25.7 BP 155/89 H Blood Pressure Source Automatic Cuff Blood Pressure Location Left Upper Arm Position Sitting Respiration 18 Pulse 65 Pulse Source Monitor Temp 97.9 F Temp Source Temporal Artery Scan Pulse Oximetry (%) 94 L Oxygen Delivery Method Room Air Med/Allergies Allergies & Medications Allergies No Known Drug Allergies Allergy (Verified 11/05/24 14:00) Medication Reconciliation aspirin 81 mg tablet,delayed release 81 mg PO BID #60 tabs 07/30/24 [Rx Confirmed 11/05/24] doxycycline hyclate 100 mg tablet 100 mg PO BID #14 tabs 07/30/24 [Rx Confirmed 11/05/24] sennosides 8.6 mg-docusate sodium 50 mg tablet (Senna-S) 1 tab-cap PO QDAY #30 tabs 07/30/24 [Rx Confirmed 11/05/24] pantoprazole 40 mg tablet,delayed release 40 mg PO QDAY #30 tabs 08/01/24 [Rx Confirmed 11/05/24] pregabalin 75 mg capsule 75 mg PO BID #45 caps 08/01/24 [Rx Confirmed 11/05/24] pregabalin 75 mg capsule 75 mg PO BID #60 caps 08/27/24 [Rx Confirmed 11/05/24] acetaminophen 500 mg tablet (Acetaminophen Extra Strength) 1,000 mg (2 x 500 mg) PO Q8HR PRN pain #90 tabs 09/10/24 [Rx Confirmed 11/05/24] oxycodone 5 mg tablet 5 mg PO Q6H PRN pain #28 tabs 09/10/24 [Rx Confirmed 11/05/24] Exam Exam Patient is in no acute distress and is cooperative with the examination today. Patient has a normal mood and affect. Breathing is nonlabored. In no respiratory distress. Bilateral extremities were evaluated and demonstrates sensation intact to light touch. Palpable pedal pulses are present. No significant edema is present. Left knee incision is clean dry intact. Range of motion 0-100 degrees Right knee demonstrates romn from 0-100. Incision is clean dry and intact Xrays demonstrate a cemented total knee replacement in good alignment and position. Right knee also demonstrates a cementless total knee replacement good alignment position Assessment and Plan Problem List (1) Degenerative arthritis of knee, bilateral: Status: Acute Plan: Patient is doing well status post right total knee replacement. She is happy with her progress. We will see her in approximately 6 to 9 months for routine follow-up for her 1 year anniversary We should get xrays at that time (2) Status post total left knee replacement: Status: Acute Advanced Care Planning Discussion Advance care planning discussed with:: patient Office Procedures GNS Level of Care Nursing/Assessment Patient Status: Established Patient Nursing Assessment/Reassesment: Medication Reconciliation, Update PMH in EMR and Vital Signs Coordination of Care: Complex Care and Chronic Disease 1-5, Education Complex Pt/Fam, Consent,records obtained, informed consent, Results/Orders obtained and Staff clarify orders Special Needs: Language special needs Established Patient Charge Established Patient Point Assignment: 95 Established Patient Point Charge: EP Level 3 (80-115) MA Intake Visit Data Collection New Patient or Established: Established Patient (seen at [facility] within 3 years) Reason for Visit:: POST OP R TKA 4 MONTHS Seen by Clinical Staff ONLY (RN/MA): No 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 PCP or OBGYN visit in last 3 months: Yes Hx Now: No Do You Feel Safe at Home: Yes Authorities Contacted: N/A Questionairres Past Medical History Past Medical History Have you ever been diagnosed with any of the following: Neurological Problems Seizures: No Cardiology Problems Congestive Heart Failure: No Respiratory Problems Chronic Obstructive Pulmonary Disease (COPD): No Smoking: No Smoking Cessation Counseling: No Smoking Exposure: No Tobacco Use: No Clubbing: No Stomache/Intestinal Problems Hepatitis: No Genital/Urinary Problems Renal Disease: No Reproductive Problems Previous Pregnancies: Yes Musculoskeletal Problems Arthritis: Yes Endocrine Problems Diabetes Mellitus Type 1: No Diabetes Mellitus Type 2: No Other Problems Hospitalization: No Shingles: No Blood Transfusions: No Blood Transfusion Reaction: No Anesthesia Reactions: No Chicken Pox: Yes Measles: Yes Cancer: No Surgical History Total Knee Replacement: Yes Hysterectomy: Yes Subjective Visit Visit for: follow up visit, post op #3 and knee Immunization / Flu Flu Vaccine in the Last 12 Months: No Flu Vaccine Exclusion Criteria: No Exclusion Criteria History of Present Illness Chief complaint: Right total knee replacement Patient is doing well status post right total knee replacement. She has minimal pain. Personal History Occupation: UNEMPLOYED Red flag PMH: none Pain Pain level (0-10): 0 Pain duration: COMES AND GOES Pain location: inside (medial), outside (lateral) and anterior Pain quality: dull and aching Associated signs & symptoms: none Ambulatory data Ambulatory device: none Treatments Improvement with previous injections: No Improvement with PT: No Improvement with NSAIDS: no Review of Systems Review of Systems: All systems negative unless otherwise noted in HPI.
[2024-11-05 14:00] VITALS: BP 155/89; PULSE 65; RESP 18; TEMP 36.6; O2SAT 94; BMI 25.7
== END 2024-11-05 14:07 | disposition home or self-care (01) ==
LOC: HODSRG 13:42
PROVIDERS: PCP Family Medicine; Referring Provider Family Medicine; Supervising Provider Orthopaedic Surgery Adult Reconstructive Orthopaedic Surgery; Visit Provider Orthopaedic Surgery Adult Reconstructive Orthopaedic Surgery
DX: M17.0 Bilateral primary osteoarthritis of knee (principal); Z96.652 Presence of left artificial knee joint
CPT/HCPCS: 99213; G0463

== ENCOUNTER 2025-02-11 13:00 | Outpatient (RCR) | payer MEDICARE, MEDICAID, SELFPAY ==
--- NOTE | 2025-01-30 13:39 | PT.OIERPT ---
PT OP Initial Eval Patient Information Outpatient Physical Therapy Treatment Date: 01/30/25 Visit Reasons: Pain in Thoracic Spine Medical Diagnosis: M54.6 Treatment Dx #1: back pain Start of Care: 01/30/25 Date of Onset: 2 yrs ago Smoking Status Smoking Status: Never smoker Initial Assessment Subjective: Pt is 69 yr old citizen [place] speaking female who c/o back pain that increases with laying flat and not sitting up straight. Increased pain after lying flat to straighten the spine. This limits bending tolerance. PMH: high cholesterol Imaging: with provider Pt goal: less back pain Objective: T/S AROM: Rotation: 75% of full Flexion: 50% of full Extension: 20% limited by pain TTP: high of thoracic paraspinals Assessment: Pt presents with high TTP of thoracic paraspinal muscles and segmental stiffness with posterior to anterior pressure consistent with degenerative changes and OA. Pt may benefit from skilled therapy and has poor/fair rehab potential for symptom relief but long-term pain is likely going to continue if she has vertebral osteophyte spurring. Short Term and Prison Goals 1. Ind with HEP 2. Decreased TTP of T/S from high to moderate 3. Pt will bend x2 mins with <=3/10 back pain Treatment Plan 60 day POC ? 1. Manual therapy ? 2. Therex ? 3. Modalities as indicated, moist heat, ice, estim, mechanical traction Frequency and Duration: 1-2x a week for 3 trial visits, if progressing continue for 12 visits plus the evaluation Certification Dates: 01/30/25 to 04/01/25 Procedure Charges OP PT Eval Mod Complex 30 minutes: Yes
--- NOTE | 2025-02-11 18:51 | PT.ODAYNRPT ---
PT Outpatient Daily Note OP Daily Note Outpatient Physical Therapy Treatment Date: 02/11/25 Visit Reasons: Pain in Thoracic Spine Subjective: Same as time of evaluation Objective: See F/S for therex MT: STM T/S with flexbar x5' MHP x7' Assessment: Moderate TTP of T/S with MT Plan: Continue per POC Length of Time (minutes) of Treatment: 30 Minutes Procedure Charges Therapeutic Exercise 30 minutes: Yes
== END 2025-02-13 23:59 | disposition home or self-care (01) ==
LOC: CPTX 13:00
PROVIDERS: PCP Family Medicine; Referring Provider Family Medicine; Visit Provider Family Medicine
DX: M54.6 Pain in thoracic spine (principal)
CPT/HCPCS: 97110; 97162

== ENCOUNTER 2025-02-17 12:45 | Outpatient (RCR) | payer MEDICARE, MEDICAID, SELFPAY ==
--- NOTE | 2025-02-17 17:27 | PT.ODS1RPT ---
PT OP Progress/Discharge Note Date of Service: 02/17/25 Progress Note/DC Note Progress Note/Discharge Note: DC Note Patient Information Visit Reasons: Pain in Thoracic spine Service Continue Service or Discharge: Discharge Discharge Date: 02/17/25 Status Subjective: The back pain is the same Objective: Same as time of the evaluation Assessment: Pt has attended the eval and 2 Rx sessions with limited progress with therapy goals due to intense back pain consistent with imaging that shows vertebral bone spurring. She is not making progress with goals and not benefitting from therapy. Pt has poor rehab potential to meet goals. PT recommends orthopedic evaluation. Plan: D/C Procedure Charges Therapeutic Exercise 30 minutes: Yes
== END 2025-03-16 23:59 | disposition home or self-care (01) ==
LOC: CPTX 12:45
PROVIDERS: PCP Family Medicine; Referring Provider Family Medicine; Visit Provider Family Medicine
DX: M54.6 Pain in thoracic spine (principal); M53.84 Other specified dorsopathies, thoracic region
CPT/HCPCS: 97110

== ENCOUNTER → 2025-04-23 | Outpatient (CLI) | payer MEDICARE, MEDICAID, SELFPAY ==
--- NOTE | 2025-04-23 14:40 | XR_ITS ---
Examination: Bone densitometry Date and time of exam: April 23, 2025, 1508 hours INDICATIONS: Hysterectomy age 31 Technique: Lumbar spine and hip total bone mineralization values of an calculated. Peak reference and age match control results have been displayed. Findings: Lumbar spine total bone mineralization is 1.059 gm/cm2. This is 0.1 standard deviations above peak reference. This is 2.1 standard deviations above controls. Hip total bone mineralization is 0.892 gm/cm2 This is 0.5 standard deviations below peak reference. This is 0.8 standard deviations above age-matched controls Impression: There is normal mineralization based on lumbar spine measurements. There is osteopenia based on hip measurements Lumbar mineralization is decreased 4.2% compared with 04/11/2023 Hip mineralization is increased 0.1% compared with 04/11/2023
== END | disposition home or self-care (01) ==
PROVIDERS: PCP Family Medicine; Referring Provider Family Medicine; Visit Provider Family Medicine
DX: M85.89 Other specified disorders of bone density and structure, multiple sites (principal)
CPT/HCPCS: 77080